=== PATIENT | female | born 1965 | race Caucasian/White ===

== ENCOUNTER 2020-10-05 06:29 | Outpatient (CLI) | payer OTHER ==
[2020-10-05 09:35] LABS: Hemoglobin 11.1 g/dL (12.0-16.0); Mean Corpuscular HGB CONC 31.4 G/DL (32.0-36.0); Mean Corpuscular Hemoglobin 30.4 PG (27.0-33.0); Mean Corpuscular Volume 96.7 fl (80.0-100.0); Mean Platelet Volume 9.2 fl (7.4-10.4); Platelet Count 300 10x3/uL (130-400); RBC Distribution Width 13.4 % (11.5-14.5); Red Blood Cell (RBC) Count 3.65 10x6/uL (3.90-5.20); White Blood Cell (WBC) Count 15.4 10x3/uL (4.5-11.0)
[2020-10-05 10:11] LABS: Anion Gap 15 mmol/L (10-20); BUN (Urea Nitrogen) 29 mg/dL (9.8-20.1); Calc. Creatinine Clearance 0 mL/min (70-130); Calcium 8.8 mg/dL (7.8-10.44); Carbon Dioxide 25 mmol/L (22-29); Chloride 102 mmol/L (98-107); Glucose 115 mg/dL (70-105); Potassium 5.4 mmol/L (3.5-5.1); Sodium 137 mmol/L (136-145)
[2020-10-05 23:15] LABS: SARS-CoV-2 MS2 Positive; SARS-CoV-2 N Gene Negative; SARS-CoV-2 S Gene Negative; SARS-CoV-2 by NAA Not Detected (NotDetected); SARS-CoV-2 orf1ab Negative
--- NOTE | 2020-10-07 07:00 | EKG ---
Test Reason : PREOP Blood Pressure : / mmHG Vent. Rate : 064 BPM Atrial Rate : 064 BPM P-R Int : 166 ms QRS Dur : 084 ms QT Int : 398 ms P-R-T Axes : 059 076 052 degrees QTc Int : 410 ms Normal sinus rhythm Normal ECG No previous ECGs available Confirmed by ZAYDA RODRIGUEZ, ARMAAN ([id number]) on 10/07/2020 7:00:20 AM Referred By: FRANCISCO, Confirmed By:ARMAAN PRIEST MD
== END 2020-10-05 06:30 | disposition home or self-care (01) ==
LOC: LABBT 06:29
PROVIDERS: ATTEND Neurological Surgery
DX: Z01.818 Encounter for other preprocedural examination (principal); Z20.828 Contact with and (suspected) exposure to other viral communicable diseases; M54.12 Radiculopathy, cervical region
CPT/HCPCS: 80048; 85027; 87635; 93005; 93010; U0003

== ENCOUNTER 2020-10-05 08:30 | Inpatient (IN) | payer OTHER ==
[2020-10-07 11:26] VITALS: BMI 31.4
[2020-10-08] MEDS ORDERED: Fentanyl 250 MCG/5 ML VIAL ONE (07:01)
[2020-10-08] MEDS ORDERED: Albumin 5% 500 ML ONE (08:01)
[2020-10-08] MEDS ORDERED: PACU-Morphine 4MG/ML VIAL SLOW IVP PRN (08:16)
[2020-10-08] MEDS ORDERED: Ondansetron HCl/PF 4 MG/2 ML Vial IVP PRN (08:16)
[2020-10-08] MEDS ORDERED: Promethazine HCl 25 MG/ML VIAL IM PRN ×2 (08:16→09:30)
[2020-10-08] MEDS ORDERED: Morphine Sulfate 2 MG/ML SYRINGE SLOW IVP PRN (08:16)
[2020-10-08] MEDS ORDERED: Promethazine HCl 25 MG/ML VIAL SLOW IVP PRN (08:16)
[2020-10-08] MEDS ORDERED: HYDROmorphone 2 MG/ML VIAL SLOW IVP PRN (08:16)
[2020-10-08] MEDS ORDERED: SUGAMMADEX SODIUM 200 MG/2 ML VIAL ONE (08:26)
[2020-10-08] MEDS ORDERED: Fentanyl 100 MCG/2 ML VIAL ONE ×2 (09:17→09:37)
--- NOTE | 2020-10-08 09:20 | OP ---
DATE OF PROCEDURE: 10/08/2020 BEVEL FACE STONER AND POLISHER: Ana Basurto PA-C PROCEDURES PERFORMED: Removal of hardware, C5-C6; exploration of spinal fusion, C5-C6; anterior cervical diskectomy, C3 through C5; interbody arthrodesis, intervertebral biomechanical device, local morselized autograft, demineralized bone matrix, anterior titanium instrumentation, C3 through C5. DESCRIPTION OF PROCEDURE: The patient was brought to the operating room and intubated. She was positioned supine with head in modest extension on a gel-filled donut. We made an incision in the right precervical area just superior to the previous incision. Dense scar tissue was encountered. We dissected down to the anterior plate. We encountered brisk venous bleeding from the lateral aspect and identified a large irregular jagged tear in the jugular vein. Dr. To then entered the field and assisted in repairing the jugular vein using multiple Ligaclips. Hemostasis was achieved in this fashion. We next removed the anterior plate at C5-C6 and explored the spinal fusion at C5-C6, which seemed to be solid. We next placed distraction from C3 through C5, debrided the intervertebral disks and completely decompressed the neural elements. The bony endplates were then decorticated for the purpose of arthrodesis and appropriate-sized intervertebral biomechanical PEEK device was brought into the field. It was filled with demineralized bone matrix and local morselized autograft, and tapped into place securely at C3-C4 and C4-C5. Next, an anterior plate was brought into the field and secured to C3, C4, and C5 using two 14-mm screws at each level. The wound was then extensively irrigated and MAC hemostasis was secured. The wound was closed in anatomic layers over drain. Job ID: [id number]
[2020-10-08] MEDS ORDERED: Milk Of Magnesia 30 ML UDCUP PO PRN (09:30)
[2020-10-08] MEDS ORDERED: Morphine 2 MG/ML VIAL SLOW IVP PRN (09:30)
[2020-10-08] MEDS ORDERED: tiZANidine HCl 4 MG TAB PO PRN (09:30)
[2020-10-08] MEDS ORDERED: Morphine 4 MG/ML VIAL SLOW IVP PRN (09:30)
[2020-10-08] MEDS ORDERED: Promethazine HCl 12.5 MG SUPP PR PRN (09:30)
[2020-10-08] MEDS ORDERED: diphenhydrAMINE 25 MG CAP PO PRN (09:30)
[2020-10-08] MEDS ORDERED: Mag-Al 1200 mg/1200 mg/30 ML UDCUP PO PRN (09:30)
[2020-10-08] MEDS ORDERED: HYDROcodone/Acetaminophen 10/325 mg Tablet PO PRN (09:30)
[2020-10-08] MEDS ORDERED: diphenhydrAMINE 50 MG/ML VIAL IVP PRN (09:30)
[2020-10-08] MEDS ORDERED: Promethazine 25 MG TAB PO PRN (09:30)
[2020-10-08] MEDS ORDERED: traMADol HCl 50 MG TAB PO PRN ×2 (09:30)
[2020-10-08] MEDS ORDERED: Ondansetron PF 4 MG/2 ML Vial IVP PRN (09:33)
[2020-10-08] MEDS ORDERED: PIROXICAM 20 MG PO PRN (09:44)
[2020-10-08] MEDS ORDERED: Acetaminophen 500 MG TAB PO PRN (09:47)
[2020-10-08] MEDS ORDERED: Ondansetron PF 4 MG/2 ML Vial ONE (09:55)
[2020-10-08] MEDS ORDERED: PROPOFOL 200 MG/20 ML VIAL ONE (09:55)
[2020-10-08] MEDS ORDERED: Dexamethasone 20 MG/5 ML VIAL ONE (09:55)
[2020-10-08] MEDS ORDERED: PHENYLEPHRINE-NS 100 MCG/ML 10 ML SYRINGE ONE (09:55)
[2020-10-08] MEDS ORDERED: ePHEDrine 50 MG/ML VIAL ONE (09:55)
[2020-10-08] MEDS ORDERED: Lidocaine 1% PF 5 ML VIAL ONE (09:55)
[2020-10-08] MEDS ORDERED: Rocuronium Bromide 10 MG/ML (10ML VIAL) ONE (09:55)
[2020-10-08] MEDS ORDERED: Morphine 4 MG/ML VIAL ONE (11:08)
[2020-10-08] MEDS: HYDROcodone/Acetaminophen 10/325 mg Tablet PO PRN ×3 (13:00→22:03)
[2020-10-08] MEDS: CEFAZOLIN 2 GM in Premix Bag 1 BAG IVPB SCH ×2 (15:25→22:04)
[2020-10-08] MEDS: Sodium Chloride 0.9% 1,000 ML IV SCH ×2 (15:35→23:20)
[2020-10-08] MEDS: Cyclobenzaprine 10 MG TAB PO SCH (20:53)
[2020-10-08] MEDS: DULoxetine 30 MG CAP PO SCH (20:53)
[2020-10-08] MEDS ORDERED: Atorvastatin Calcium 40 MG TAB PO SCH (21:00)
[2020-10-08] MEDS ORDERED: Lisinopril 20 MG TAB PO SCH (21:00)
[2020-10-08] MEDS ORDERED: Atenolol 50 MG TAB PO SCH (21:00)
[2020-10-08] MEDS ORDERED: Nortriptyline HCl 25 MG CAP PO SCH (21:00)
--- NOTE | 2020-10-08 21:44 | CON ---
DATE OF CONSULTATION: PRIMARY CARE PHYSICIAN: Dr. Wright in [place]. CHIEF COMPLAINT: Neck pain. HISTORY OF PRESENT ILLNESS: The patient is a 54-year-old female with past medical history significant for hypertension, elevated cholesterol, and chronic pain, who presented for elective surgery today of hardware removal and C3 through C5 ACDF. We were consulted today for medical management. The patient was cleared by Cardiology prior to her surgery. The patient states she is normally compliant with her medications and her physician visits. PAST MEDICAL HISTORY: Hypertension, hyperlipidemia, chronic pain, and cervical spondylosis. PAST SURGICAL HISTORY: Cervical fusion and trigger finger releases. ALLERGIES: LYRICA AND GABAPENTIN. MEDICATIONS: 1. Aspirin 81 mg p.o. daily. 2. Lisinopril 40 mg p.o. q.p.m. 3. Atorvastatin 80 mg p.o. at bedtime. 4. Atenolol 50 mg p.o. q.p.m. 5. Diclofenac sodium one application as needed. 6. Flexeril 10 mg p.o. b.i.d. 7. Piroxicam 20 mg at night. 8. Nortriptyline 75 mg at night. 9. Cymbalta 30 mg p.o. twice a day. SOCIAL HISTORY: The patient lives at home with her . She denies alcohol, tobacco, or drug use. FAMILY HISTORY: Noncontributory to this stay. REVIEW OF SYSTEMS: All other review of systems negative unless noted in the HPI. PHYSICAL EXAMINATION: VITAL SIGNS: Temp 97.9, pulse 102, respiratory rate 16, O2 saturation 95% on 2 L, and blood pressure 108/69. GENERAL: Appears nontoxic, in no acute distress. HEAD: Atraumatic, normocephalic. EYES: Extraocular muscles intact. PERRLA. RESPIRATORY: Clear to auscultation bilaterally. No rhonchi, no wheezes, no rales. CARDIOVASCULAR: Regular rate and rhythm. No rubs, no gallops. ABDOMEN: Soft, nontender, nondistended. Bowel sounds normal. EXTREMITIES: No cyanosis, no clubbing, no edema. SKIN: Bandage in place to right-sided neck from surgery. LABORATORY DATA: EKG shows sinus rhythm with 64 beats per minute. Labs were obtained on 10/05/2020. White blood cells 15.4, hemoglobin 11.1. Sodium 137, potassium 5.4, BUN 29, creatinine 1.09, and GFR 52. COVID swab negative. IMPRESSION AND PLAN: History of high blood pressure. We will continue to monitor vital signs q.4 hours. Restart the patient's home medications and cover with any p.r.n. antihypertensives as needed. Hyperlipidemia. We will continue to restart the patient's home medications. The patient did present with a slightly elevated white count on 10/05/2020 of 15.4. We will continue to monitor that through her stay and watch for any signs of infection. Initial hemoglobin was 11.11, we will also continue to monitor that after surgery. Potassium is slightly elevated at 5.4. We will have to repeat it in the morning. The patient has VTE prophylaxis in place with SCDs. The patient wishes to be a full code. Her , Lizandro, is her surrogate decision maker. I will follow the patient throughout the course of her stay. Thank you for this consultation. Job ID: [id number]
[2020-10-09] MEDS: HYDROcodone/Acetaminophen 10/325 mg Tablet PO PRN ×3 (02:44→10:55)
[2020-10-09] MEDS: CEFAZOLIN 2 GM in Premix Bag 1 BAG IVPB SCH (06:50)
[2020-10-09 08:10] VITALS: BP 129/59; TEMP 98.5
[2020-10-09] MEDS: Cyclobenzaprine 10 MG TAB PO SCH (09:21)
[2020-10-09] MEDS: DULoxetine 30 MG CAP PO SCH (09:21)
--- NOTE | 2020-10-12 14:14 | DIS ---
DATE OF ADMISSION: 10/08/2020 DATE OF DISCHARGE: 10/09/2020 Procedure: removal of hardware, C3-C5 ACDF DISCHARGE SUMMARY: The patient is a 54-year-old female recently evaluated in the office for progressive neck pain and was found to have increased degenerative changes above her prior fusion. She underwent removal of hardware and C3-C5 ACDF. Following the surgery she was transitioned to the [facility] floor where her pain was well controlled with PO medications, she is tolerating a regular diet and voiding appropriately. She was ambulating in the halls. ELSIE removed on POD 1. Dismissed to home. Discussed home care, precautions, and will fu in 2 weeks. JAVA ANALYST aware checked prior to dc Job ID: [id number] [facility]
== END 2020-10-09 11:10 | disposition home or self-care (01) | DRG 473 ==
LOC: SURG A 10-08 05:34 → SJJU 10-08 11:34
PROVIDERS: ADMIT Neurological Surgery; ATTEND Neurological Surgery
PROC: 0RG20A0 Fusion of 2 or more Cervical Vertebral Joints with Interbody Fusion Device, Anterior Approach, Anterior Column, Open Approach (ICD-10-PCS; principal; 2020-10-08)
PROC: 0RB30ZZ Excision of Cervical Vertebral Disc, Open Approach (ICD-10-PCS; 2020-10-08)
PROC: 01N10ZZ Release Cervical Nerve, Open Approach (ICD-10-PCS; 2020-10-08)
PROC: 0RP104Z Removal of Internal Fixation Device from Cervical Vertebral Joint, Open Approach (ICD-10-PCS; 2020-10-08)
DX: M47.22 Other spondylosis with radiculopathy, cervical region (principal); M19.90 Unspecified osteoarthritis, unspecified site; Z98.890 Other specified postprocedural states; I10 Essential (primary) hypertension; E78.5 Hyperlipidemia, unspecified; Z20.828 Contact with and (suspected) exposure to other viral communicable diseases
CPT/HCPCS: 76000; C1713; C1776; J0690; J1100; J2270; J2405; J2704; J3010; J3490; P9045